=== PATIENT | male | born 2005 | race Caucasian/White ===

== ENCOUNTER 2024-09-27 11:39 | Emergency (ER) | payer BC, MEDICAID, OTHER ==
[2024-09-27] MEDS: Ketorolac 30 MG/ML SDV IM ONE (12:06)
[2024-09-27] MEDS: Tamsulosin 0.4 MG Cap.ER PO ONE (13:44)
== END 2024-09-27 13:47 | disposition home or self-care (01) ==
LOC: JP.ED 11:39
DX: N13.2 Hydronephrosis with renal and ureteral calculous obstruction (principal); Z86.16 Personal history of COVID-19
CPT/HCPCS: 74176; 96372; 99284; A9270; J1885